=== PATIENT | female | born 1985 | race Caucasian/White ===

== ENCOUNTER 2016-07-04 18:52 | Emergency (ER) | payer OTHER ==
[~2016-07-04] VITALS: Ht 162.6 cm; Wt 69.5 kg
[~2016-07-04 18:52] MED LIST: PREN1TAB69 PO; ZOL50 PO
[2016-07-04 18:55] VITALS: BP 137/83; PULSE 95; RESP 15; O2SAT 100
--- NOTE | 2016-07-04 19:09 | ED.REPORT ---
HPI-Abd Pain F Under 39 Date of Service Jul 04, 2016 ED Provider: Da Reyes DO A 30 year old female with a history of ulcerative colitis, migraines, and depression presents to the ED from Urgent Care with right mid-abdominal pain onset two days ago. The patient also reports vaginal discharge. She has had an IUD in place for three years but believes the string may be lower than usual. The patient denies nausea, vomiting, or other symptoms at this time. Nursing Notes Stated Complaint: RT ABDOMINAL PAIN Chief Complaint: Female Abdominal Pain Nursing Notes Reviewed: Yes Allergies: Coded Allergies: tramadol (Verified Allergy, Severe, chest tightness, SOB, 09/14/12) Cephalexin Monohydrate (Verified Allergy, Intermediate, Rash, 07/04/16) codeine (Verified Allergy, Intermediate, RASH, ITCHING, 08/18/12) ibuprofen (Verified Allergy, Unknown, does not take due to colitis, 07/04/16 ) Uncoded Allergies: IBPROPFEN (Allergy, Unknown, 07/04/16) IBU (Allergy, Unknown, 09/14/12) Scheduled Vit/Fe Fumarate/Fa-Expunged Drug, Do (-Expunged Drug, Do Not Renew!) 1 Each Tablet 1 EACH PO AM Sertraline-Expunged Drug, Choose New Med! (Sertraline-Expunged Drug, Choose New Med!) 50 Mg Tab 50 MG PO DAILY General Time Seen by MD: 19:01 Chief Complaint Abdominal pain Hx Obtained From: Patient Arrived By: Walk-in Sudden in Onset?: No Onset Occurred: 2 days ago Symptom Duration: Since onset Location: : RUQ (Mid) Quality: Painful Severity: Current: Moderate Severity: Maximum: Moderate Associated with: Reports: Vaginal discharge, Denies: Diarrhea, Fever, Nausea, Vomiting Sexual History / Control: Reports IUD Pertinent Negative: Relieved by nothing Recent Healthcare: Recent doctor visit Past Medical History Past Medical History Ulcerative colitis (2011) Migraines Depression Past Surgical History Arthroscopic right knee due to torn meniscus (2002) Smoking History Unknown if Ever Smoker Ambulatory Status Independent Review of Systems Constitutional: Denies: Fever Respiratory: Denies: Non-productive cough, Shortness of breath GI: Reports: Abdominal pain (Mid right), Denies: Diarrhea, Nausea, Vomiting Female: Reports: Vaginal discharge Complete sys rev & neg: except as marked. Physical Exam Physical Exam Notes: Initial Vital Signs Vital Signs (First) Date Time Temp Pulse Resp B/P Pulse Ox O2 Delivery O2 Flow Rate FiO2 07/04/16 18:55 36.6 95 15 137/83 100 Room Air Initial VS: Reviewed Head / Eyes: Atraumatic, Normocephalic ENT: Conjunctiva normal, No scleral icterus Neck: Supple, Full range of motion Skin: Warm, Dry, No cyanosis Neurologic: Alert, Oriented, Nonfocal Psychiatric: Mood/affect normal, Behavior normal, Normal thought content General/Constitutional: Awake, Alert Respiratory / Chest: Breath sounds NL, Breath sounds = bilat, No respiratory distress Cardiovascular: Heart rate NL, Regular rhythm, Heart sounds NL Abdomen: Soft Right mid-abdomen tenderness Female Genitourinary: Resistor Tester present, External genitalia NL Pelvic Exam: Positive: Cervical motion tend... (Moderate), IUD present Mucus purulent greenish cervical discharge Interpretation & Diagnostics US APPENDIX: IMPRESSION: 1. Appendix not seen. 2. Small amount of ascites. Dictated by: Annel Wheeler M.D. on 07/04/2016 at 20:12 US ABDOMEN: IMPRESSION: Contracted gallbladder. Otherwise negative examination. Dictated by: Annel Wheeler M.D. on 07/04/2016 at 20:11 URINE DIPSTICK: 1.005 sp gravity 6 pH ++ Leukocyte Esterase Normal Glucose Normal Urobilinogen Otherwise Negative URINE : Negative Lab Results Interpretation Result Diagram: 07/04/16191107/04/161911 Test 07/04/16 19:12 07/04/16 19:27 07/04/16 20:29 White Blood Count 13.4th/mm3 (3.8-10.1) Red Blood Count 4.81mil/mm3 (3.90-5.20) Hemoglobin 14.5g/dL (12.0-15.6) Hematocrit 41.8% (35.0-46.0) Mean Corpuscular Volume 86.9fL (81-100) Mean Corpuscular Hemoglobin 30.1pg (27.0-35.0) Mean Corpuscular Hemoglobin Concent 34.7% (32.0-37.0) Red Cell Distribution Width 12.6% (12.3-15.4) Platelet Count 230bil/L (150-400) Neutrophils (%) (Auto) 54.4% (40-74) Lymphocytes (%) (Auto) 37.8% (14-46) Monocytes (%) (Auto) 6.1% (4-12) Eosinophils (%) (Auto) 1.2% (0-5) Basophils (%) (Auto) 0.1% (0-3) Sodium Level 138mEq/L (134-144) Potassium Level 3.8mEq/L (3.5-5.2) Chloride Level 99mEq/L (97-108) Carbon Dioxide Level 24mmol/L (18-29) Blood Urea Nitrogen 11mg/dL (6-20) Creatinine 0.60mg/dL (0.57-1.00) Estimat Glomerular Filtration Rate 167mL/min (>59) Glucose Level 100mg/dL (60-99) Calcium Level 9.6mg/dL (8.5-10.1) Total Bilirubin 0.2mg/dL (0.0-1.2) Aspartate Amino Transf (AST/SGOT) 15U/L (0-50) Alanine Aminotransferase (ALT/SGPT) 18U/L (0-32) Alkaline Phosphatase 41U/L (25-150) Total Protein 7.8g/dL (6.4-8.4) Albumin 4.9g/dL (3.4-5.0) Lipase 103U/L (13-60) HCG Beta Subunit < 0.5mIU/mL Hold Deluna Top Tube Received (Received) Urine Color Yellow (YELLOW) Urine Appearance Clear (CLEAR,HAZY) Urine pH 7.5 (5.0-8.0) Urine Specific Hunter 1.010 (1.003-1.035) Urine Protein Negativemg/dL (NEG,TRACE) Urine Glucose (UA) Negativemg/dL (NEGATIVE) Urine Ketones Negativemg/dL (NEGATIVE) Urine Occult Blood Negative (NEGATIVE) Urine Nitrite Negative (NEGATIVE) Urine Bilirubin Negative (NEGATIVE) Urine Urobilinogen Normalmg/dL (NORMAL) Urine Leukocyte Esterase Moderate (NEGATIVE) Urine RBC 0-2/hpf (0-2) Urine WBC 6-10/hpf (0-5) Urine Epithelial Cells Moderate/hpf (NONE-MOD) Urine Crystals None seen (NONE SEEN) Urine Bacteria Moderate/hpf (NONE-FEW) Urine Hyaline Casts None/lpf (NONE) Urine Granular Casts None seen (NONE SEEN) Urine Waxy Casts None seen (NONE SEEN) Urine Red Blood Cell Casts None seen (NONE SEEN) Urine White Blood Cell Casts None seen (NONE SEEN) Urine Mucus None seen (None Seen) Urine Trichomonas None seen (NONE SEEN) Urine Yeast None (NONE SEEN) Urinalysis Comment None Urine Culture Reflexed Indicated CT Abd / Pelvis Interpretation IMPRESSION: 1. Rotated and malpositioned intrauterine device. 2. Appendix not seen. No evidence of appendicitis. 3. Small amount of free fluid within the pelvis, which is within physiological limits in a menstruating female. Dictated by: Annel Wheeler M.D. on 07/04/2016 at 20:45 Study type: Abdominal CT IV contrast Interpretation / Wet Read by: Interpret - Radiologist Re-Eval/Medical Decision Med Decision/Clinical Course Based on CT and ultrasound the IUD will need to be removed. I think she has infectious cervicitis. Taking, her allergies she was treated with gentamicin and Zithromax. This CDC recommendations for gonococcal treatment which she may have. She is cephalosporin allergic. She took some Keflex and term beat red almost immediately. I will place her on doxycycline. I spoke with the nurse practitioner for her primary care. They are getting her gynecology referral tomorrow. Short course of [place] provided for pain. Source of Hx: Old records Re-Evaluation/Progress #1: Time of Eval: 20:10 Patient Status: Condition improved Re-Evaluation/Progress Note: Pelvic exam performed. Re-Evaluation/Progress #2: Time of Eval: 21:18 Patient Status: Condition improved Re-Evaluation/Progress Note: Patient rechecked. Discussed with patient US and CT results. Re-Evaluation/Progress #3: Time of Eval: 22:37 Patient Status: Condition improved Re-Evaluation/Progress Note: Discussed with patient US, CT, and lab results, diagnosis, and plan for discharge. Follow-up and return to the ER instructions given. Patient agrees with plan for care and all questions were addressed. Consultation : Consulted With: Primary care physician Call Returned at: 21:47 Hearing Officer: Will see in office, Agrees with eval, Agrees with plan Note: Discussed with physician institutional asset manager for Dr. Lovett. Counseled Regarding: Diagnosis, Lab results, Need for follow-up, When/why to return to ED Discharge & Departure Shift Change Sign-Out Response to Therapy: Improved Primary Impression: Cervicitis Additional Impression: Complication of intrauterine device Device complication type: mechanical Mechanical complication type: displacement Encounter type: initial encounter Qualified Code: T83.32XA - Displacement of intrauterine contraceptive device, initial encounter Disposition: Home Discharge Condition All VS Reviewed: Yes Condition: Improved Patient Instructions: Acute Abdominal Pain (ED), Cervicitis (ED), Intrauterine Device (DC) Additional Instructions: The exam of your cervix is consistent with an infection. You received a dose of medications in the emergency department and you will need to take doxycycline twice daily for 7 days. The test to see if an STD is the cause of the infection will be available in 48-72 hours. Your intrauterine device has migrated into the lower uterine segment. This needs to be removed and replaced. I consulted with the nurse practitioner on-call for Dr. Lovett. They will refer you to gynecology. Call their office tomorrow morning for the referral time. For tonight you may take 1-2 [place] every 6 hours as needed for pain. Do not drive or drink alcohol or consume acetaminophen while taking the [place]. Return to the ER if you develop new or worsening symptoms including fever or increasing pain. Referrals: James Lovett MD (PCP) Scribe Attestation Portions of this note were transcribed by Valentine Romano. I, Dr. Reyes, personally performed the history, physical exam, and medical decision-making; I reviewed and confirmed the accuracy of the information in the transcribed note. Signed by: Nimco Durham, 07/04/2016, 23:57 copies to: James Lovett MD, Todd P DO Jul 04, 2016 19:09 VALENTINE ROMANO Jul 04, 2016 19:11
[2016-07-04] MEDS ORDERED: HYDROmorphone 0.5 mg/0.5 mL iSecure Syringe IVPUSH PRN (19:10)
[2016-07-04] MEDS ORDERED: Ondansetron 2 mg/mL 2 mL Inj IVPUSH PRN (19:10)
[2016-07-04] MEDS ORDERED: 0.9% Sodium Chloride 1,000 ML IV ONE (19:10)
[2016-07-04 19:23] LABS: BASOPHILS % (AUTO) 0.1 % (0-3); EOSINOPHILS % (AUTO) 1.2 % (0-5); MONOCYTES % (AUTO) 6.1 % (4-12); Mean Corpuscular Hemoglobin 30.1 pg (27.0-35.0); Mean Corpuscular Volume 86.9 fL (81-100); NEUTROPHILS % (AUTO) 54.4 % (40-74); Platelet Count 230 bil/L (150-400)
[2016-07-04 19:40] LABS: APPEARANCE,URINE CLEAR (CLEAR,HAZY); COLOR,URINE YELLOW (YELLOW); OCCULT BLOOD,URINE NEGATIVE (NEGATIVE); PH,URINE 7.5 (5.0-8.0); UROBILINOGEN,URINE NORMAL (NORMAL)
[2016-07-04 19:58] LABS: Lipase 103 U/L (13-60)
--- NOTE | 2016-07-04 20:14 | DRSVH ---
PROCEDURE: US ABDOMEN ([id number]) INDICATIONS: right mid abdominal pain TECHNIQUE: Real-time scanning was performed of the abdominal and retroperitoneal organs, with image documentatio n. COMPARISON: None. FINDINGS: Liver: Liver is normal in size and homogeneous in echotexture. Gallbladder: Contracted and suboptimally evaluated. No evidence of gallbladder wall thickening. No ch olelithiasis. Biliary ducts: Intrahepatic bile ducts are non-dilated. Extrahepatic bile duct caliber measures 2.5 mm. Normal is 6-7 mm or less in diameter, or 10 mm or less post-cholecystectomy. Pancreas: Visualized portions of the pancreas are sonographically normal. Spleen: Spleen is normal in size and homogeneous in echotexture. Kidneys: Kidneys are normal in size and echotexture. Right kidney measures 10.9 cm long; left kidne y measures 11.9 cm long. No hydronephrosis or nephrolithiasis. No solid masses. Aorta: Visualized aorta is normal in caliber at less than 3 cm. Iliacs: Proximal common iliac arteries are normal in caliber at less than 2.5 cm. IVC: Intrahepatic inferior vena cava is patent. Miscellaneous: No free abdominal fluid. IMPRESSION: Contracted gallbladder. Otherwise negative examination. Dictated by: Annel Wheeler M.D. on 07/04/2016 at 20:11 Approved by: Annel Wheeler M.D. on 07/04/2016 at 20:12
--- NOTE | 2016-07-04 20:15 | DRSVH ---
PROCEDURE: US APPENDIX INDICATIONS: right mid abdominal pain TECHNIQUE: Real-time focused scanning was performed of the abdomen with attention to the appendix, with image do cumentation. COMPARISON: None. FINDINGS: Appendix is not seen. No evidence of appendicitis. Free fluid is seen within the right lower quadrant . IMPRESSION: 1. Appendix not seen. 2. Small amount of ascites. Dictated by: Annel Wheeler M.D. on 07/04/2016 at 20:12 Approved by: Annel Wheeler M.D. on 07/04/2016 at 20:13
--- NOTE | 2016-07-04 20:51 | DRSVH ---
PROCEDURE: CT ABDOMEN AND PELVIS WITH CONTRAST ([id number]) INDICATIONS: rlq pain, 13 wbc, US inconclusive TECHNIQUE: After the administration of intravenous contrast, 5 mm thick sections acquired from the diaphragm to the symphysis. 5 mm coronal and sagittal reformats were acquired. For radiation dose reduction, the following was used: automated exposure control, adjustment of mA and/or kV according to patient joya bobo. COMPARISON: [facility], CT, ABD/PELVIS W/CON (PN), 03/05/2011, 22:35. FINDINGS: Image quality: Excellent. ABDOMEN: Lung bases: Lung bases are clear. Heart size is normal. Solid organs: Liver and spleen are normal in size and enhancement. Gallbladder is contracted. Bili juan f system is non dilated. Pancreas enhances normally. No adrenal nodules. Kidneys demonstrate nor mal size and enhancement, without hydronephrosis. Peritoneum and bowel: Bowel loops demonstrate normal wall thickness and caliber. No free air. Small amount of free fluid in the pelvis is present, within physiological limits in a menstruating female. Appendix is not seen. No evidence of appendicitis. Nodes and vessels: No retroperitoneal or mesenteric adenopathy by size criteria. Aorta and inferior vena cava are normal in size. Miscellaneous: No ventral hernias. PELVIS: Genitourinary: Bladder wall thickness is normal. An intrauterine device is present, as before, whic h appears rotated from normal positioning, and the inferior aspect is within the lower uterine segmen t. This is new compared to the prior examination. Miscellaneous: No inguinal hernias or adenopathy. Bones: No suspicious bony lesions. No vertebral body compression fractures. IMPRESSION: 1. Rotated and malpositioned intrauterine device. 2. Appendix not seen. No evidence of appendicitis. 3. Small amount of free fluid within the pelvis, which is within physiological limits in a menstruati ng female. Dictated by: Annel Wheeler M.D. on 07/04/2016 at 20:45 Approved by: Annel Wheeler M.D. on 07/04/2016 at 20:49
[2016-07-04] MEDS ORDERED: GENTAMICIN 40 MG/ML IM ONE (21:50)
[2016-07-04] MEDS ORDERED: _HYDROcodone/APAP 5-325 mg Tablet PO PRN (21:55)
[2016-07-04 23:09] VITALS: BP 112/73; PULSE 59; RESP 18; O2SAT 99
== END 2016-07-04 23:03 | disposition home or self-care (01) ==
LOC: SED 18:52
DX: N72 Inflammatory disease of cervix uteri (principal); T83.32XA Displacement of intrauterine contraceptive device, initial encounter; X58.XXXA Exposure to other specified factors, initial encounter; Y93.9 Activity, unspecified; Y99.8 Other external cause status; Y92.9 Unspecified place or not applicable; Z88.1 Allergy status to other antibiotic agents; Z88.5 Allergy status to narcotic agent; Z88.6 Allergy status to analgesic agent
CPT/HCPCS: 36415; 74177; 76700; 76705; 80053; 81000; 81025; 83690; 84702; 85025; 87086; 87088; 87210; 87491; 87591; 96361; 96372; 96374; 96375; 99285; J1170; J1580; J2405; J7030; Q9967